=== PATIENT | male | born 1970 | race Native Hawaiian/Other Pacific Islander ===

== ENCOUNTER 2018-11-22 14:13 | Emergency (ER) | payer BC ==
[~2018-11-22] VITALS: Ht 182.9 cm; Wt 93.0 kg
[2018-11-22] MEDS ORDERED: COLCHICINE0.6 MG PO (14:54)
[2018-11-22] MEDS ORDERED: NEXIUM40 M1 PO (14:54)
[2018-11-22 15:08] LABS: PLATELET COUNT 310 K/uL (142-355)
[2018-11-22 15:13] LABS: POTASSIUM 3.8 mmol/L (3.6-5.2)
[2018-11-22 20:48] VITALS: BP 158/94; TEMP 97.9
== END 2018-11-22 20:49 | disposition home or self-care (01) ==
LOC: ED 14:13
PROVIDERS: Emergency Medicine
DX: F20.89 Other schizophrenia (principal); F31.89 Other bipolar disorder
CPT/HCPCS: 80053; 80307; 80320; 80329; 84484; 84550; 85027; 93005; 99285

== ENCOUNTER 2019-05-22 10:21 | Outpatient (CLI) | payer BC ==
[~2019-05-22 10:21] MED LIST: COLCHICINE0.6 MG PO; NEXIUM40 M1 PO
== END 2019-05-22 10:42 | disposition short-term general hospital (02) ==
LOC: AMB 10:21
DX: R07.9 Chest pain, unspecified (principal); M79.602 Pain in left arm; I45.10 Unspecified right bundle-branch block; R00.1 Bradycardia, unspecified
CPT/HCPCS: A0425; A0427